=== PATIENT | male | born 1995 | race African-American/Black ===

== ENCOUNTER 2019-02-11 01:53 | Emergency (ER) | payer SELFPAY ==
[2019-02-11] MEDS ORDERED: Lidocaine 1% w/Epinephrine 1:100K 20 ML VIAL ONE (02:23)
[2019-02-11] MEDS ORDERED: Adacel (T-DAP) 0.5 ML SYRINGE ONE (02:23)
--- NOTE | 2019-02-11 09:05 | RAD ---
RIGHT HAND 3 VIEWS: Date: 02/11/19 HISTORY: Trauma. IMPRESSION: No fracture or acute osseous abnormality identified involving the right hand. POS: OFF
== END 2019-02-11 03:23 | disposition home or self-care (01) ==
LOC: ERS 01:53
DX: S66.320A Laceration of extensor muscle, fascia and tendon of right index finger at wrist and hand level, initial encounter (principal); W26.8XXA Contact with other sharp object(s), not elsewhere classified, initial encounter
CPT/HCPCS: 12002; 90471; 90715; J2001

== ENCOUNTER 2019-06-05 18:37 | Emergency (ER) | payer SELFPAY ==
[2019-06-05 19:56] LABS: #Basophils 0.1 thou/uL (0.0-0.2); #Lymphocytes 1.5 thou/uL (1.20-3.40); #Monocytes 0.5 thou/uL (0.11-0.59); #Neutrophils 5.3 thou/uL (1.40-6.50); %Basophils 1.3 % (0.0-1.0); %Eosinophils 0.6 % (0.0-10.0); %Lymphocytes 20.8 % (21.0-51.0); %Monocytes 6.4 % (0.0-10.0); %Neutrophils 70.8 % (42.0-75.0); Hemoglobin 16.6 g/dL (14.0-18.0); Mean Corpuscular HGB CONC 34.6 g/dL (32.0-36.0); Mean Corpuscular Hemoglobin 30.6 pg (27.0-31.0); Mean Corpuscular Volume 88.5 fL (78.0-98.0); Platelet Count 193 thou/uL (130-400); RBC Distribution Width 11.8 % (11.5-14.5); Red Blood Cell (RBC) Count 5.41 mill/uL (4.70-6.10); White Blood Cell (WBC) Count 7.4 thou/uL (4.8-10.8)
[2019-06-05 20:20] LABS: ALT (SGPT) 30 U/L (8-55); AST (SGOT) 25 U/L (5-34); Alkaline Phosphatase 80 U/L (40-150); Anion Gap 14 mmol/L (10-20); BUN (Urea Nitrogen) 11 mg/dL (8.9-20.6); Bilirubin, Total 0.4 mg/dL (0.2-1.2); CK (CPK) 614 U/L (30-200); Calc. Creatinine Clearance 0 mL/min (70-130); Calcium 10.2 mg/dL (7.8-10.44); Carbon Dioxide 24 mmol/L (22-29); Chloride 102 mmol/L (98-107); Estimated GFR-MDRD 84; Globulin 3.4 g/dL (2.4-3.5); Glucose 95 mg/dL (70-105); Potassium 3.4 mmol/L (3.5-5.1); Protein, Total 8.4 g/dL (6.0-8.3); Sodium 137 mmol/L (136-145)
== END 2019-06-05 22:37 | disposition home or self-care (01) ==
LOC: ERS 18:37
DX: S00.512A Abrasion of oral cavity, initial encounter (principal); R42 Dizziness and giddiness; J45.909 Unspecified asthma, uncomplicated; Y33.XXXA Other specified events, undetermined intent, initial encounter
CPT/HCPCS: 36415; 80053; 82550; 85025; 99284

== ENCOUNTER 2019-09-21 06:30 | Emergency (ER) | payer SELFPAY ==
[2019-09-21 07:25] LABS: #Basophils 0.1 thou/uL (0.0-0.2); #Eosinphils 0.2 thou/uL (0.0-0.7); #Lymphocytes 2.8 thou/uL (1.20-3.40); #Monocytes 0.4 thou/uL (0.11-0.59); #Neutrophils 2.2 thou/uL (1.40-6.50); %Basophils 2.3 % (0.0-1.0); %Eosinophils 3.1 % (0.0-10.0); %Monocytes 7.4 % (0.0-10.0); %Neutrophils 38.3 % (42.0-75.0); Hemoglobin 15.8 g/dL (14.0-18.0); Mean Corpuscular HGB CONC 34.6 g/dL (32.0-36.0); Mean Corpuscular Hemoglobin 31.6 pg (27.0-31.0); Mean Corpuscular Volume 91.1 fL (78.0-98.0); Mean Platelet Volume 9.3 fL (7.4-10.4); Platelet Count 181 thou/uL (130-400); RBC Distribution Width 11.9 % (11.5-14.5); White Blood Cell (WBC) Count 5.6 thou/uL (4.8-10.8)
[2019-09-21] MEDS ORDERED: Ondansetron PF 4 MG/2 ML Vial ONE (07:34)
[2019-09-21 07:42] LABS: ALT (SGPT) 30 U/L (8-55); AST (SGOT) 22 U/L (5-34); Albumin 4.6 g/dL (3.5-5.0); Alkaline Phosphatase 91 U/L (40-110); Anion Gap 12 mmol/L (10-20); BUN (Urea Nitrogen) 12 mg/dL (8.9-20.6); Bilirubin, Total 0.5 mg/dL (0.2-1.2); Calc. Creatinine Clearance 0 mL/min (70-130); Calcium 9.8 mg/dL (7.8-10.44); Carbon Dioxide 25 mmol/L (22-29); Chloride 105 mmol/L (98-107); Estimated GFR-MDRD 89; Globulin 3.6 g/dL (2.4-3.5); Glucose 105 mg/dL (70-105); Potassium 3.8 mmol/L (3.5-5.1); Protein, Total 8.2 g/dL (6.0-8.3); Sodium 138 mmol/L (136-145)
== END 2019-09-21 09:20 | disposition home or self-care (01) ==
LOC: ERS 06:30
DX: R11.2 Nausea with vomiting, unspecified (principal); R19.7 Diarrhea, unspecified; J45.909 Unspecified asthma, uncomplicated
CPT/HCPCS: 80053; 85025; 96361; 96374; J2405

== ENCOUNTER 2020-07-22 20:27 | Observation (INO) | payer OTHER ==
[2020-07-22 21:56] LABS: #Lymphocytes 1.2 thou/uL (1.20-3.40); #Monocytes 0.4 thou/uL (0.11-0.59); #Neutrophils 5.7 thou/uL (1.40-6.50); %Basophils 0.6 % (0.0-1.0); %Eosinophils 0.2 % (0.0-10.0); %Lymphocytes 16.1 % (21.0-51.0); %Monocytes 5.6 % (0.0-10.0); %Neutrophils 77.5 % (42.0-75.0); Hemoglobin 16.5 g/dL (14.0-18.0); Mean Corpuscular HGB CONC 33.6 g/dL (32.0-36.0); Mean Corpuscular Volume 92.1 fL (78.0-98.0); Mean Platelet Volume 9.1 fL (7.4-10.4); Platelet Count 225 thou/uL (130-400); RBC Distribution Width 12.2 % (11.5-14.5); Red Blood Cell (RBC) Count 5.32 mill/uL (4.70-6.10); White Blood Cell (WBC) Count 7.4 thou/uL (4.8-10.8)
[2020-07-22 22:19] LABS: ALT (SGPT) 31 U/L (8-55); AST (SGOT) 23 U/L (5-34); Albumin 4.6 g/dL (3.5-5.0); Alkaline Phosphatase 80 U/L (40-110); Anion Gap 16 mmol/L (10-20); BUN (Urea Nitrogen) 12 mg/dL (8.9-20.6); Bilirubin, Total 0.4 mg/dL (0.2-1.2); Calc. Creatinine Clearance 0 mL/min (70-130); Calcium 9.6 mg/dL (7.8-10.44); Carbon Dioxide 21 mmol/L (22-29); Chloride 104 mmol/L (98-107); Estimated GFR-MDRD Greater than 90; Globulin 3.3 g/dL (2.4-3.5); Glucose 107 mg/dL (70-105); Potassium 3.9 mmol/L (3.5-5.1); Protein, Total 7.9 g/dL (6.0-8.3); Sodium 137 mmol/L (136-145)
[2020-07-22] MEDS ORDERED: Lorazepam 2 MG/ML VIAL ONE (23:26)
[2020-07-22 23:59] LABS: Acetaminophen Less than 6.0 mcg/mL (10.0-30.0); Alcohol Less than 10 mg/dL (Less than 10); Salicylate Less than 8.0 mg/dL (15.0-30.0)
[2020-07-23] MEDS ORDERED: Ondansetron PF 4 MG/2 ML Vial ONE (00:32)
[2020-07-23] MEDS ORDERED: Lorazepam 2 MG/ML VIAL SLOW IVP PRN (00:49)
[2020-07-23] MEDS ORDERED: Labetalol HCl 100 MG/20 ML VIAL SLOW IVP PRN (00:51)
[2020-07-23] MEDS ORDERED: cloNIDine 0.1 MG TAB PO PRN (00:51)
[2020-07-23] MEDS ORDERED: Ondansetron PF 4 MG/2 ML Vial IVP PRN (00:51)
[2020-07-23] MEDS ORDERED: hydrALAZINE 20 MG/ML VIAL SLOW IVP PRN (00:51)
[2020-07-23] MEDS ORDERED: Acetaminophen 325 MG TAB PO PRN (00:51)
[2020-07-23] MEDS ORDERED: Promethazine HCl 12.5 MG in Sodium Chloride 0.9% 50 ML IVPB PRN (00:51)
[2020-07-23] MEDS ORDERED: Guaifenesin DM 100-10/5 ML UDCUP PO PRN (00:51)
--- NOTE | 2020-07-23 00:52 | PDOC.HHP ---
Hospitalist HPI - History of Present Illness Seizure History of Present Illness: Patient is a 24 year old male with PMH seizure disorder who presents to hospital for seizure at detention. patient has known seizure disorder diagnosed a few years ago, on keppra 500mg bid, reports compliance at unit. today he had seizure earlier in the day at detention unit, brought to hospital for further evaluation. in ed, labs unremarkable, keppra level therapeutic, patient was to be discharged however had second seizure one minute long in car and was brought back in, was post ictal but is now close to baseline. patient given keppra and ativan in ed and admitted for further care. patient originally aox1 after episode, now aox3. patient denies focal neuro deficits, denies fever, sob, chest pain. he was diagnosed with seizure disorder 2 years ago or so, does not know if there was any underlying cause, he has been on keppra since. Hospitalist ROS - Review of Systems Constitutional: denies: fever, chills, sweats, weakness, malaise, other Eyes: denies: pain, vision change, conjunctivae inflammation, eyelid inflammation, redness, other ENT: denies: ear pain, ear discharge, nose pain, nose discharge, nose c ongestion, mouth pain, mouth swelling, throat pain, throat swelling, other Respiratory: denies: cough, dry, shortness of breath, hemoptysis, SOB with excertion, pleuritic pain, sputum, wheezing, other Cardiovascular: denies: chest pain, palpitations, orthopnea, paroxysmal noc. dyspnea, edema, light headedness, other Gastrointestinal: denies: nausea, vomiting, abdominal pain, diarrhea, constipation, melena, hematochezia, other Genitourinary: denies: dysuria, frequency, incontinence, hematuria, retention, other Musculoskeletal: denies: neck pain, shoulder pain, arm pain, back pain, hand pain, leg pain, foot pain, other Skin: denies: rash, lesions, caity, bruising, other Neurological: reports: seizures. denies: weakness, numbness, incoordination, change in speech, confusion, other All other systems reviewed; all pertinent +/- noted in HPI/Subj - Medication Medications: keppra 500mg po bid Hospitalist History - Past Medical History Other Medical History: asthma, seizure - Past Surgical History Other Surgical History: forearm, wrist, shoulder surgery - Family History Family History: reports: no pertinent history - Social History Smoking Status: Never smoker Alcohol: reports: None Drugs: reports: marijuana - Exam General Appearance: NAD, awake alert Eye: PERRL, anicteric sclera ENT: normocephalic atraumatic, no oropharyngeal lesions, moist mucosa Neck: supple, symmetric, no JVD, no thyromegaly, no lymphadenopathy, no carotid bruit Heart: RRR, no murmur, no gallops, no rubs, normal peripheral pulses Respiratory: CTAB, no wheezes, no rales, no ronchi, normal chest expansion, no tachypnea, normal percussion Gastrointestinal: soft, non-tender, non-distended, normal bowel sounds, no palpable masses, no hepatomegaly, no splenomegaly, no bruit Extremities: no cyanosis, no clubbing, no edema Skin: normal turgor, no lesions, no rashes Neurological: cranial nerve grossly intact, normal sensation to touch, no weakness, no focal deficits, no new deficit Musculoskeletal: normal tone, normal strength, no muscle wasting Psychiatric: normal affect, normal behavior, A&O x 3 Hospitalist Results - Labs Result Diagrams: 07/22/20 21:40 07/22/20 21:40 Lab results: WBC 7.4 thou/uL (4.8-10.8) 07/22/20 21:40 Hgb 16.5 g/dL (14.0-18.0) 07/22/20 21:40 Hct 49.0 % (42.0-52.0) 07/22/20 21:40 MCV 92.1 fL (78.0-98.0) 07/22/20 21:40 Plt Count 225 thou/uL (130-400) 07/22/20 21:40 Neutrophils % 77.5 % (42.0-75.0) H 07/22/20 21:40 Sodium 137 mmol/L (136-145) 07/22/20 21:40 Potassium 3.9 mmol/L (3.5-5.1) 07/22/20 21:40 Chloride 104 mmol/L (98-107) 07/22/20 21:40 Carbon Dioxide 21 mmol/L (22-29) L 07/22/20 21:40 BUN 12 mg/dL (8.9-20.6) 07/22/20 21:40 Creatinine 1.18 mg/dL (0.7-1.3) 07/22/20 21:40 Glucose 107 mg/dL (70-105) H 07/22/20 21:40 Calcium 9.6 mg/dL (7.8-10.44) 07/22/20 21:40 Total Bilirubin 0.4 mg/dL (0.2-1.2) 07/22/20 21:40 AST 23 U/L (5-34) 07/22/20 21:40 ALT 31 U/L (8-55) 07/22/20 21:40 Alkaline Phosphatase 80 U/L (40-110) 07/22/20 21:40 Serum Total Protein 7.9 g/dL (6.0-8.3) 07/22/20 21:40 Albumin 4.6 g/dL (3.5-5.0) 07/22/20 21:40 Additional comment: VITAL SIGNS Tue Jul 22, 2020 23:14 TIM Miller, Rach BP: 114/88 MAP: 96 Pulse: 119 Resp: 28 Pain: UTR O2 sat: 93 on (Room Air) Time: 07/22/2020 23:14. labs, imaging reports, ed documents reviewed Hospitalist H&P A/P - Plan Plan: Patient is a 24 year old male with PMH seizure disorder who presents to hospital for breakthrough seizure. # seizure disorder with breakthrough seizure - 2 seizures witnessed one at detention and one here, compliant with keppra, no focal deficits, takes keppra 500mg po bid and level therapeutic here. will start new seizure medicine and consult neurology for assistance since seizure happened even though therpeutic on keppra - admit to stroke unit - seizure precautions, neurochecks - start fosphenytoin - consult neurology # history of asthma - PRN nebs ordered, no wheezing on my exam DVT/GI ppx full code
[2020-07-23] MEDS ORDERED: Electrolyte Replacement Protoc 1 EACH EACH FS SCH (01:00)
[2020-07-23] MEDS ORDERED: Fosphenytoin Sodium 1,500 MG in Sodium Chloride 0.9% 50 ML IVPB SCH (01:00)
[2020-07-23 02:48] VITALS: BMI 29.6
[2020-07-23] MEDS ORDERED: Ketorolac Tromethamine 30 MG/ML VIAL IVP SCH (08:15)
--- NOTE | 2020-07-23 08:21 | CT ---
PRELIMINARY REPORT/[facility]/EMERGENCY AFTER HOURS PROCEDURE: EXAM: CT Head Without Intravenous Contrast. CLINICAL HISTORY: [facility] stating that he had a seizure earlier today. He states that he has had a seizure disorder for about 2 years. He takes 500 mg of Keppra twice daily. He states he has been t aking his medication appropriately TECHNIQUE: Axial computed tomography images of the head/brain without intravenous contrast. COMPARISON: None provided. FINDINGS: BRAIN: No acute intraparenchymal hemorrhage. No mass lesion. No CT evidence for acute territorial infarct. N o midline shift or extra-axial collection. VENTRICLES: No hydrocephalus. ORBITS: The orbits are unremarkable. SINUSES AND MASTOIDS: The paranasal sinuses and mastoid air cells are clear. SOFT TISSUES: No significant facial or scalp soft tissue swelling evident. No radiopaque foreign body is seen. BONES: No acute skull fracture. IMPRESSION: No acute intracranial abnormality. ELECTRONICALLY SIGNED BY: Alpesh Diamond MD Jul 23, 2020 2:00:19 AM CDT This report is intended for review by the ordering physician only, in accordance of law. If you recei ve this report in error, please call [facility] at [phone]. FINAL REPORT CT HEAD: No acute process identified. I am in agreement with the preliminary report. POS: AGW
[2020-07-23] MEDS ORDERED: Magnevist 469MG/ML 20 ML VIAL ONE (08:57)
[2020-07-23] MEDS ORDERED: Fosphenytoin Sodium 200 MG in Sodium Chloride 0.9% 50 ML IVPB SCH (09:00)
[2020-07-23] MEDS ORDERED: Famotidine 20 MG TAB PO SCH (09:00)
[2020-07-23] MEDS ORDERED: levETIRAcetam 500 MG TAB PO SCH ×4 (09:00→21:00)
--- NOTE | 2020-07-23 10:48 | PDOC.EVN ---
Event Note - Event Note Event Note: Patient seen and examined. No further seizure overnight. Getting EEG. No neurologic deficits. Had headache but resolved with Toradol. Discussed case with Dr. Choi. She stated that if EEG and MRI both normal can d/c back to prison on increased dose of Keppra 750mg bid. Stopping phosphenytoin.
[2020-07-23 11:26] VITALS: BP 124/57; TEMP 98.5
[2020-07-23 12:01] LABS: SARS-CoV-2 MS2 Positive; SARS-CoV-2 N Gene Negative; SARS-CoV-2 S Gene Negative; SARS-CoV-2 by NAA Not Detected (NotDetected); SARS-CoV-2 orf1ab Negative
--- NOTE | 2020-07-23 13:58 | CON ---
NEUROLOGY CONSULTATION DATE OF CONSULTATION: 07/23/2020 REASON FOR CONSULTATION: Breakthrough seizures. HISTORY OF PRESENT ILLNESS: Mr. Hiram Faye Jr is a 24-year-old male with history significant for seizure disorder, presented to the hospital after having seizures at the long term. He is on Keppra 500 mg p.o. b.i.d. According to the patient, he did miss one dose of the medication. In the emergency room, labs were unremarkable. He was discharged. However, he had a second seizure in the car and was brought back and admitted. He was given Keppra and Ativan. The patient denies nausea, vomiting, headache, chest pain, abdominal pain, recent sick contacts, or exposure to COVID. He was diagnosed with seizure disorder 2 years ago and has been on Keppra since the last 2 years. PAST MEDICAL HISTORY: Seizure disorder, asthma. PAST SURGICAL HISTORY: Forearm brace, shoulder surgery. FAMILY HISTORY: No family history of epilepsy. SOCIAL HISTORY: The patient smokes marijuana. Denies smoking, alcohol, or illegal drug use. ALLERGIES: NKDA REVIEW OF SYSTEMS: Constitutional: denies: fever, chills, sweats, weakness, malaise, other Eyes: denies: pain, vision change, conjunctivae inflammation, eyelid inflammation, redness, other ENT: denies: ear pain, ear discharge, nose pain, nose discharge, nose congestion, mouth pain, mouth swelling, throat pain, throat swelling, other Respiratory: denies: cough, dry, shortness of breath, hemoptysis, SOB with excertion, pleuritic pain, sputum, wheezing, other Cardiovascular: denies: chest pain, palpitations, orthopnea, paroxysmal noc. dyspnea, edema, light headedness, other Gastrointestinal: denies: nausea, vomiting, abdominal pain, diarrhea, constipation, melena, hematochezia, other Genitourinary: denies: dysuria, frequency, incontinence, hematuria, retention, other Musculoskeletal: denies: neck pain, shoulder pain, arm pain, back pain, hand pain, leg pain, foot pain, other Skin: denies: rash, lesions, caity, bruising, other Neurological: reports: seizures. denies: weakness, numbness, incoordination, change in speech, confusion, other All other systems reviewed; all pertinent +/- noted in HPI/Subj PHYSICAL EXAMINATION: VITAL SIGNS: Blood pressure 114/88, pulse 119, respirations 28. General Appearance: NAD, awake alert Eye: PERRL, anicteric sclera ENT: normocephalic atraumatic, no oropharyngeal lesions, moist mucosa Neck: supple, symmetric, no JVD, no thyromegaly, no lymphadenopathy, no carotid bruit Heart: RRR, no murmur, no gallops, no rubs, normal peripheral pulses Respiratory: CTAB, no wheezes, no rales, no ronchi, normal chest expansion, no tachypnea, normal percussion Gastrointestinal: soft, non-tender, non-distended, normal bowel sounds, no palpable masses, no hepatomegaly, no splenomegaly, no bruit Extremities: no cyanosis, no clubbing, no edema Skin: normal turgor, no lesions, no rashes Neurological: Mental status: The patient is alert and oriented to person, place, and time. Recent and remote memory, intact. Speech is clear. Cranial nerves 2 through 12 intact. Motor: Muscle tone and bulk are normal. Strength is 5/5 bilaterally. Sensory: Intact. Gait: Deferred due to the patient's safety reasons. Cerebellar: Finger-nose testing intact. DATA REVIEWED: I reviewed the results, which were essentially unremarkable. 07/22/20 21:40 Lab results: WBC 7.4 thou/uL (4.8-10.8) 07/22/20 21:40 Hgb 16.5 g/dL (14.0-18.0) 07/22/20 21:40 Hct 49.0 % (42.0-52.0) 07/22/20 21:40 MCV 92.1 fL (78.0-98.0) 07/22/20 21:40 Plt Count 225 thou/uL (130-400) 07/22/20 21:40 Neutrophils % 77.5 % (42.0-75.0) H 07/22/20 21:40 Sodium 137 mmol/L (136-145) 07/22/20 21:40 Potassium 3.9 mmol/L (3.5-5.1) 07/22/20 21:40 Chloride 104 mmol/L (98-107) 07/22/20 21:40 Carbon Dioxide 21 mmol/L (22-29) L 07/22/20 21:40 BUN 12 mg/dL (8.9-20.6) 07/22/20 21:40 Creatinine 1.18 mg/dL (0.7-1.3) 07/22/20 21:40 Glucose 107 mg/dL (70-105) H 07/22/20 21:40 Calcium 9.6 mg/dL (7.8-10.44) 07/22/20 21:40 Total Bilirubin 0.4 mg/dL (0.2-1.2) 07/22/20 21:40 AST 23 U/L (5-34) 07/22/20 21:40 ALT 31 U/L (8-55) 07/22/20 21:40 Alkaline Phosphatase 80 U/L (40-110) 07/22/20 21:40 Serum Total Protein 7.9 g/dL (6.0-8.3) 07/22/20 21:40 Albumin 4.6 g/dL (3.5-5.0) 07/22/20 21:40 ASSESSMENT AND PLAN: Mr. Hiarm Faye Jr is a 24-year-old male with past medical history significant for seizure disorder, presented with breakthrough seizures, most likely secondary to noncompliance. According to him, he missed a dose of Keppra. However, he does admit that he had occasional breakthrough seizures on current dose of Keppra. Consider increasing the dose of Keppra to 750 mg p.o. b.i.d. Keppra has a broad therapeutic range, so he may require a greater dose of Keppra to control his seizures. Discontinue fosphenytoin since no need to put him on 2 anticonvulsants at this point. MRI of the brain to evaluate for seizure focus. EEG to assess cortical irritability is negative for seizure activity.. Ativan 2 mg IV for seizure greater than 2 minutes. Neuro checks every 4 hours. Observe seizure precautions. Continue home medications. Continue medical management per primary team. Plan was discussed in detail with the patient and also with the primary attending, Dr. Mann. We will continue to follow. Thank you for the consult. Job ID: [id number] MTDD
--- NOTE | 2020-07-23 14:41 | EEG ---
DATE OF SERVICE: 07/23/2020 ATTENDING PHYSICIAN: Nisreen Choi MD. This EEG was performed using 24-channel [employer] video digital EEG machine with 24-disk electrodes. This was a routine EEG recording. BACKGROUND: The posterior background rhythm is 9 to 10 hertz. The background rhythm attenuates with eye opening and enhances with eye closure. HYPERVENTILATION: Not performed. PHOTIC STIMULATION: No significant response seen with photic stimulation. SLEEP: Drowsiness and sleep are observed. EEG DIAGNOSIS: Normal awake, drowsy, and sleep EEG. Job ID: [id number]
--- NOTE | 2020-07-23 15:43 | MRI ---
MRI BRAIN WITH AND WITHOUT CONTRAST: Date: 07/23/2020 INDICATION: Seizure. FINDINGS: The exam is severely compromised due to motion artifact. Ventricles have normal size and position. There is no evidence of restricted diffusion. Hippocampal formations appear symmetric. No abnormal enhancement identified. IMPRESSION: Unremarkable MRI brain. POS: AGW
[2020-07-23] MEDS ORDERED: Enoxaparin Sodium 40 MG/0.4 ML SYRINGE SC SCH (21:00)
--- NOTE | 2020-07-24 03:29 | DIS ---
DATE OF ADMISSION: 07/22/2020 DATE OF DISCHARGE: 07/23/2020 PRIMARY CARE PHYSICIAN: Driss Ashraf. REASON FOR ADMISSION: Uncontrolled seizures. DIAGNOSES AT DISCHARGE: 1. Seizure disorder with breakthrough seizures. 2. Asthma, currently without exacerbation or symptoms. PROCEDURES: 1. CT of the brain without contrast showing no acute intracranial abnormality. 2. EEG showing normal awake, drowsy and sleep EEG. 3. MRI of the brain showing no acute intracranial abnormality. CONSULTATIONS: Neurology, Dr. Choi. SUMMARY OF HOSPITAL COURSE: This is a 24-year-old male with a history of seizure disorder that came on while he was watching the of his firstborn son. He has been on Keppra, which was controlling his seizures well. He had not had a seizure for probably a year. The patient was in residential, noted to have a seizure and brought to the hospital for evaluation and found to have a therapeutic Keppra level. He was discharged back to residential and on the ride back in the car, had another seizure. He was observed in the hospital. He was given a loading dose of Cerebyx IV, had no more seizures during hospitalization. Dr. Choi was consulted. He had an EEG and MRI with above results. She recommended stopping the Cerebyx and increasing his Keppra to 750 mg twice a day, this was done. The patient was without seizures or symptoms at the time of discharge and being discharged back to residential. DISCHARGE MANAGEMENT: Discharged to residential. ACTIVITY: As tolerated. DIET: Regular diet. FOLLOWUP: Follow up with primary care physician in 14 days. DISCHARGE MEDICATIONS: Keppra 750 mg twice daily, 60 tablets dispensed. Job ID: [id number]
== END 2020-07-23 16:45 ==
LOC: ERS 20:27 → 2SW 23:57
PROVIDERS: ADMIT Internal Medicine; ATTEND Internal Medicine
DX: G40.909 Epilepsy, unspecified, not intractable, without status epilepticus (principal); J45.909 Unspecified asthma, uncomplicated; Z79.899 Other long term (current) drug therapy; Z20.828 Contact with and (suspected) exposure to other viral communicable diseases
CPT/HCPCS: 36415; 70450; 70553; 80053; 80177; 80307; 85025; 87635; 93005; 95816; 95819; 95957; 96361; 96365; 96366; 96374; 96375; A9579; G0378; J1885; J1953; J2060; J2405; Q2009; U0003

== ENCOUNTER 2021-10-16 03:08 | Emergency (ER) | payer SELFPAY ==
[2021-10-16] MEDS ORDERED: levETIRAcetam 500 mg/5 ml Oral Solution PO SCH (04:30)
== END 2021-10-16 05:15 | disposition home or self-care (01) ==
LOC: ERS 03:08
DX: R56.9 Unspecified convulsions (principal); J45.909 Unspecified asthma, uncomplicated
CPT/HCPCS: 99283

== ENCOUNTER 2021-10-29 09:36 | Emergency (ER) | payer SELFPAY ==
[2021-10-29 11:02] LABS: #Basophils 0.1 thou/uL (0.0-0.2); #Eosinphils 0.1 thou/uL (0.0-0.7); #Lymphocytes 1.4 thou/uL (1.20-3.40); #Monocytes 0.2 thou/uL (0.11-0.59); #Neutrophils 2.9 thou/uL (1.40-6.50); %Basophils 2.2 % (0.0-1.0); %Eosinophils 1.3 % (0.0-10.0); %Lymphocytes 29.7 % (21.0-51.0); %Monocytes 4.7 % (0.0-10.0); %Neutrophils 62.1 % (42.0-75.0); Hemoglobin 16.4 g/dL (14.0-18.0); Mean Corpuscular HGB CONC 32.5 g/dL (32.0-36.0); Mean Corpuscular Hemoglobin 29.6 pg (27.0-31.0); Mean Corpuscular Volume 91.1 fL (78.0-98.0); Platelet Count 166 thou/uL (130-400); RBC Distribution Width 12.1 % (11.5-14.5); Red Blood Cell (RBC) Count 5.52 mill/uL (4.70-6.10); White Blood Cell (WBC) Count 4.6 thou/uL (4.8-10.8)
[2021-10-29 11:07] LABS: Acetaminophen Less than 6.0 mcg/mL (10.0-30.0); Alcohol Less than 10 mg/dL (Less than 10); Salicylate Less than 8.0 mg/dL (15.0-30.0)
[2021-10-29 11:09] LABS: ALT (SGPT) 43 U/L (8-55); AST (SGOT) 26 U/L (5-34); Albumin 4.1 g/dL (3.5-5.0); Alkaline Phosphatase 96 U/L (40-110); Anion Gap 17 mmol/L (10-20); BUN (Urea Nitrogen) 11 mg/dL (8.9-20.6); Bilirubin, Total 0.4 mg/dL (0.2-1.2); Calc. Creatinine Clearance 0 mL/min (70-130); Calcium 9.8 mg/dL (7.8-10.44); Carbon Dioxide 19 mmol/L (22-29); Chloride 106 mmol/L (98-107); Globulin 3.7 g/dL (2.4-3.5); Glucose 106 mg/dL (70-105); Potassium 3.7 mmol/L (3.5-5.1); Protein, Total 7.8 g/dL (6.0-8.3); Sodium 138 mmol/L (136-145)
== END 2021-10-29 11:40 | disposition home or self-care (01) ==
LOC: ERS 09:36
DX: G40.909 Epilepsy, unspecified, not intractable, without status epilepticus (principal)
CPT/HCPCS: 70450; 80053; 80307; 85025; 93005; 96374; 96375